=== PATIENT | female | born 1945 | race Caucasian/White ===

== ENCOUNTER 2018-10-30 01:20 | Emergency (ER) | payer MEDICARE ==
[~2018-10-30] VITALS: Ht 167.6 cm; Wt 113.6 kg
[2018-10-30 01:23] VITALS: Ht 167.6 cm; Wt 113.6 kg
[2018-10-30] MEDS ORDERED: BAYER CHEWABLE81 MG PO (01:25)
[2018-10-30] MEDS ORDERED: HYDROCODON-ACE1 EAC7 PO (01:49)
[2018-10-30] MEDS ORDERED: VALIUM 2 MG TAB2 MG (02:11)
[2018-10-30] MEDS ORDERED: PROZAC10 MG (02:11)
[2018-10-30] MEDS ORDERED: BP MEDS (02:11)
[2018-10-30] MEDS ORDERED: ADVIL200 MG (02:11)
[2018-10-30] MEDS ORDERED: SPIRIVA18 MCG (02:11)
[2018-10-30 03:08] VITALS: BP 113/56
== END 2018-10-30 03:08 | disposition home or self-care (01) ==
LOC: D.ER 01:20
DX: T14.8XXA Other injury of unspecified body region, initial encounter (principal); S09.8XXA Other specified injuries of head, initial encounter; W19.XXXA Unspecified fall, initial encounter